=== PATIENT | female | born 2000 | race Hispanic/Latino ===

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

== ENCOUNTER 2022-02-08 17:52 | Emergency (ER) | payer BC, SELFPAY ==
[2022-02-08 17:53] VITALS: BP 177/100; PULSE 116; RESP 18; TEMP 36.4; O2SAT 98; BMI 57.6
[2022-02-08 18:56] VITALS: BP 153/107; PULSE 108; RESP 22; O2SAT 98
--- NOTE | 2022-02-08 19:08 | EDS_ITS ---
HPI History of Present Illness Chief Complaint: Shortness of Breath Informant: patient Narrative Narrative: Patient initially presents with sore throat and pain with swallowing. She also feels like it is little hard to breathe through her throat. This has been going on since Monday. She had a procedure that had a removal possible polyp from the third portion of the duodenum up in [place]. Evidently there was a lot of irritation to the throat after the procedure. It was very red and scratched. On her way back to college here on Monday she had a little bleeding from the throat. She stopped in [facility]. She had work-up with blood work, rapid strep which was negative, and a CT scan of the neck with and without contrast that showed no abnormalities. She was given a single dose of steroids. She states she felt better on Monday and a little bit Monday but it starting to come back. She has not had fevers but she has soreness of her throat. She is not really coughing. She is not really having dyspnea of her lungs but is just sore breathing through her throat. It is also hard to swallow because it hurts. Patient denies medical conditions. She is on no medications. Although she has no specific medical diseases she says she has a lot of medical problems. She sees lots of specialist for lots of symptoms. They have never been able to diagnose her with anything. 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 They do not know what the disorder is. But it is the only one in the world. They also think she might have an autoimmune disorder but her blood work varies [id number]. She used to be on vitamins and folate but she has taken off of those. She generally has been healthy. PFSH PFSH Medical History Anxiety Asthma Kidney stones Non-smoker Home Medications ketorolac 10 mg tablet 10 mg PO TID pain 4 days #12 tabs 06/01/21 [Rx Last Taken Unknown] methylphenidate HCl 20 mg tablet (Ritalin) 40 mg PO DAILY 06/01/21 [History Last Taken Unknown] ondansetron 4 mg disintegrating tablet 4 mg PO Q6H PRN nausea and vomiting #10 tabs 06/01/21 [Rx Last Taken Unknown] amoxicillin 400 mg-potassium clavulanate 57 mg/5 mL oral suspension 10 ml PO BID 10 days #200 mL 08/23/22 [Rx Last Taken Unknown] Allergy/AdvReac Type Severity Reaction Status Date / Time ibuprofen [From Motrin] AdvReac NEEDS Verified 06/01/21 15:37 FOLLOW-UP Social History Smoking Status: Never smoker ROS ROS ED Constitutional Constitutional ED: Denies chills, fever(s) or subjective Eyes Eyes: Denies change in vision ENT ENT ED: Reports sore throat and other Details: See history of present illness peer Cardiovascular Cardiovascular: Denies chest pain or palpitations Respiratory/Chest Respiratory/Chest: Denies cough Gastrointestinal Gastrointestinal: Denies abdominal pain, nausea or vomiting Musculoskeletal Musculoskeletal: Reports neck pain Integumentary Denies Abrasions or rash Neurologic Neurologic: Denies headache(s) Psychiatric Psychiatric: Denies anxiety Endocrine Endocrinology: Denies polydipsia or polyuria Hematologic/Lymphatic Hematologic/Lymphatic: Denies easy bleeding or easy bruising Allergic/Immunologic Allergic/Immunologic ED: Denies urticaria EXAM Physical Exam Const Vital Signs: 02/08/22 17:53 02/08/22 18:56 02/08/22 18:56 Temperature 97.6 F L Temperature Source Temporal Pulse Rate 116 H 108 H Respiratory Rate 18 22 H Respiratory Effort Normal Respiratory Depth Normal Respiratory Pattern Normal Blood Pressure 177/100 H 153/107 H Blood Pressure Mean 125 122 Pulse Ox 98 98 Oxygen Delivery Method Room Air Room Air Room Air 02/08/22 20:04 Temperature Temperature Source Pulse Rate 107 H Respiratory Rate 21 H Respiratory Effort Respiratory Depth Respiratory Pattern Blood Pressure 144/101 H Blood Pressure Mean 115 Pulse Ox 97 Oxygen Delivery Method Room Air Positive well nourished, well developed and obese Constitutional Narrative: Patient carries on normal conversation. She looks comfortable. She does not appear to be having acute trouble breathing. Her voice does sound a little scratchy. General Appearance ED: well developed and NAD; Negative for cyanotic or diaphoretic Nutritional Appearance: obese HEENT HEENT Narrative: She does have some malodorous breath. She has tonsils that are a bit red. They are mildly enlarged. Right side could be slightly larger than the left. There is also exudate on the tonsils. No sign of pointing or abscess. Tongue is mobile. Posterior pharynx does show wide open areas. Eyes EOMs intact bilaterally Neck Neck Narrative: Mild lymphadenopathy. No stridor. Resp normal respiratory effort and clear to auscultation bilaterally Resp Narrative: Lungs are completely clear. Breathing is easy and unlabored. No pain with a deep breath. Auscultation: Negative for rales, rhonchi or wheezes Cardio regular rhythm Rate: tachycardic GI normal to inspection, nondistended, normoactive bowel sounds and non-tender Back/Spine no CVA tenderness Extremity normal to inspection Neuro Sensorium / Orientation: alert Skin no rashes or lesions noted MDM MDM MDM Narrative Medical decision making narrative: Patient's rapid strep is negative. However, she has erythema, exudate soreness recent procedure with an abrasion and prior bleeding and malodorous breath. She already had a CT scan on Monday. We discussed the options but do not feel this needs to be repeated. We will treat her with a dose of steroids. We will use Tylenol. I will also add antibiotics. She and her mom are happy with this plan. We discussed reasons to return and expected course. Lab Data Attestation: I reviewed the patient's lab results. Discharge Plan Triage Chief Complaint: Shortness of Breath ED Provider: Trae Garrett Dx/Rx/DC Orders Clinical Impression: Acute pharyngitis Instructions: ED Pharyngitis, Report Pending Prescriptions: New amoxicillin-pot clavulanate 400-57 mg/5 mL suspension for reconstitution 10 ml PO BID 10 Days Qty: 200 0RF No Action methylphenidate HCl [Ritalin] 20 mg Tablet 40 mg PO DAILY ketorolac 10 mg tablet 10 mg PO TID 4 Days Qty: 12 0RF ondansetron 4 mg tablet,disintegrating 4 mg PO Q6H PRN (Reason: nausea and vomiting) Qty: 10 0RF Primary Care Provider: Care Physician,No Primary Referrals: Irene Roth DO [Med Staff - Active Staff] - 3-5 Days if not improving Care Physician,No Primary [Primary Care Provider] - Disposition Disposition: Home, Self Care
[2022-02-08 20:04] VITALS: BP 144/101; PULSE 107; RESP 21; O2SAT 97
[2022-02-08 21:27] VITALS: BP 139/123; PULSE 94; RESP 19; O2SAT 97
[2022-02-08] MEDS: Amox/Clav 400mg/5ml Susp 800 MG PO (21:29)
[2022-02-08] MEDS: dexAMETHasone 10 MG/ML Vial PO.IVFORM (21:29)
[2022-02-08] MEDS: Acetaminophen 650 MG/20 ML UDC PO (21:29)
== END 2022-02-08 21:36 | disposition home or self-care (01) ==
PROVIDERS: Emergency Provider Emergency Medicine; Visit Provider Emergency Medicine
DX: J02.9 Acute pharyngitis, unspecified (principal); R06.02 Shortness of breath
CPT/HCPCS: 87880; 99283

== ENCOUNTER 2024-02-07 19:00 | Emergency (ER) | payer BC, SELFPAY ==
[2024-02-07 19:01] VITALS: BP 160/102; PULSE 100; RESP 17; TEMP 36.4; O2SAT 99
[2024-02-07 19:25] LABS: Mucous, Urine 0 SEEN /hpf (<or=2+)
[2024-02-07 19:33] LABS: Color, Urine Red (Yellow); Glucose, Dipstick Normal (Normal); Ketone-Dipstick Negative (Negative); Leukocyte Esterase-Dipstick 500 /ul (Negative); Nitrite-Dipstick Negative (Negative); Occult Blood-Urine 250 /ul (Negative); Protein-Dipstick 100 mg/dl (Negative); Specific Gravity, Urine 1.015 (1.002-1.030); Urine Bilirubin Dipstick Negative (Negative); Urine Clarity Cloudy (Clear); Urine Urobilinogen 1 mg/dl (Normal)
[2024-02-07 20:08] LABS: Bacteria 2+ /hpf (None Seen); White Blood Cells 5-10 SEEN /hpf (0-5)
[2024-02-07 20:09] LABS: Renal Epithelial Cells 0-5 SEEN /hpf (0-5); Transitional Epithelial - Ur 0-5 SEEN /hpf (0-5)
[2024-02-07 20:11] LABS: Red Blood Cells-Urine > 100 SEEN /hpf (0-5); Squamous Epithelial Cells - UA 5-10 SEEN /hpf (5-10)
--- NOTE | 2024-02-07 20:14 | ED.VIS.FEGU ---
HPI HPI - Female History of Present Illness Chief Complaint: Vag Bld, Preg Narrative Narrative: Patient is a 23-year-old female with history of pernicious anemia, states that she is approximate 7 weeks presenting with vaginal bleeding. The patient was having intercourse today when she suddenly had bleeding. She states there is about a handful amount of bright red blood. Notes her bleeding is slowing down this point. Has been having urinary frequency but denies any associated dysuria or hematuria. Was otherwise feeling well. Denies any signs of abdominal pain. 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 Patient denies any other complaints or concerns at this time. [facility] Medical History Anxiety Non-smoker Asthma Kidney stones Home Medications ?Medication ?Instructions ?Recorded ?Last Taken ?Type ketorolac 10 mg tablet 10 mg PO TID pain 4 days #12 tabs 06/01/21 Unknown Rx methylphenidate HCl 20 mg tablet 40 mg PO DAILY 06/01/21 Unknown History (Ritalin) ondansetron 4 mg disintegrating 4 mg PO Q6H PRN nausea and 06/01/21 Unknown Rx tablet vomiting #10 tabs amoxicillin 400 mg-potassium 10 ml PO BID 10 days #200 mL 02/08/22 Unknown Rx clavulanate 57 mg/5 mL oral suspension Allergy/AdvReac Type Severity Reaction Status Date / Time ibuprofen (From Motrin) AdvReac NEEDS Verified 02/07/24 19:01 FOLLOW-UP Social History Smoking Status: Never smoker ROS ROS ED Constitutional Constitutional ED: Denies chills or fever(s) Respiratory/Chest Respiratory/Chest: Denies cough or dyspnea Gastrointestinal Gastrointestinal: Denies abdominal pain, nausea or vomiting Genitourinary Genitourinary ED: Reports urinary frequency and other Details: vaginal bleeding ; Denies dysuria or hematuria Hematologic/Lymphatic Hematologic/Lymphatic: Denies easy bleeding or easy bruising EXAM Physical Exam Const Vital Signs: 02/07/24 19:01 02/07/24 21:00 Temperature 97.6 F L Temperature Source Temporal Pulse Rate 100 82 Respiratory Rate 17 16 Blood Pressure 160/102 H 135/88 H Blood Pressure Mean 121 103 Pulse Ox 99 98 Oxygen Delivery Method Room Air Room Air Positive well nourished and well developed General Appearance ED: well developed and NAD Neck supple Resp normal respiratory effort and clear to auscultation bilaterally Cardio regular rate and regular rhythm GI normal to inspection, nondistended, normoactive bowel sounds, soft to palpation and non-tender Narrative: Chaperoned pelvic exam?difficult to fully evaluate the cervix, secondary to patient's body habitus. No pooling of blood in the vaginal canal. There is some dark red blood noted on vaginal exam. No clots appreciated. No cervical motion tenderness on bimanual exam. No adnexal tenderness present. Normal external genitalia. Extremity normal to inspection Neuro oriented x3 Sensorium / Orientation: alert Motor Exam: Negative for general weakness Psych mental status grossly normal Skin no rashes or lesions noted and no wounds MDM MDM MDM Narrative Medical decision making narrative: Patient is evaluated for vaginal bleeding in early . She was nontoxic in no acute distress. She is not complain of any associated pain. Was having intercourse during the bleeding. Again denies any associated pelvic pain or pain with intercourse. Has not had an ultrasound to confirm uterine gestation, states that she had an ultrasound in [place] but it is too soon for them to say for sure about anything. Does not have an INSPECTING MACHINE ADJUSTER in this area. Differential includes was not limited to ectopic , vaginal laceration, threatened miscarriage, urinary tract infection Patient does have a leukocytosis of 17.8 however she has no infectious symptoms and overall is well-appearing. Her hemoglobin is normal at 13.1. hCG quant is 64,984. Urinalysis she has twos+ bacteria and greater than 100,000 RBCs. Suspect this is more contamination from the bleeding. She is a positive and does not require RhoGAM. Attempted to perform bedside ultrasound I did see a gestational sac however did not see a definitive intrauterine gestation or pole so we will obtain formal ultrasound given her bleeding. Formal pelvic ultrasound shows monk gestation consistent with 7 weeks and 4 days and with a heart rate of 148. Patient formed of these findings. Counseled that this is considered a threatened miscarriage. Given local outpatient INSPECTING MACHINE ADJUSTER follow-up. Given return precautions. Discussed pelvic rest. She verbalized [place] understands plan. Will send urine off for culture but defer treatment at this time. Patient agreeable to plan of care Lab Data Labs: Laboratory Results - last 24 hr 02/07/24 02/07/24 19:19 19:31 WBC 17.8 H RBC 4.76 Hgb 13.1 Hct 40.1 MCV 84.2 MCH 27.5 MCHC 32.7 RDW Std Deviation 45.6 H RDW Coeff of Viki 14.8 H Plt Count 391 MPV 10.1 Immature Gran % (Auto) 0.600 Neut % (Auto) 73.8 H Lymph % (Auto) 17.9 L [place] % (Auto) 6.7 Eos % (Auto) 0.6 Baso % (Auto) 0.4 Absolute Neuts (auto) 13.2 H Absolute Lymphs (auto) 3.19 Nucleated RBC % 0 HCG, Quant 06500 H Urine Color Red Urine Clarity Cloudy Urine pH 6.0 Ur Specific [place] 1.015 Urine Protein 100 H Urine Glucose (UA) Normal Urine Ketones Negative Urine Occult Blood 250 H Urine Nitrite Negative Urine Bilirubin Negative Urine Urobilinogen 1 H Ur Leukocyte Esterase 500 H Urine RBC > 100 SEEN Urine WBC 5-10 SEEN Ur Squamous Epith Cells 5-10 SEEN Ur Transition Epith Cell 0-5 SEEN Ur Renal Epithelial Cell 0-5 SEEN Urine Bacteria 2+ Urine Mucus 0 SEEN Blood Type A POSITIVE Radiography Diagnostic Testing: Clinical Impression(s) from Imaging Studies Obstetrics Ultrasound 02/07/24 21:09 IMPRESSION: Single live intrauterine measuring at 7 weeks +4 days by crown-rump length. This gives estimated date of delivery by current ultrasound of 09/21/2024. Right 1.9 cm likely corpus luteum. Electronically Signed: Hamzah Miranda MD at 22:37 EDT , Discharge Plan Triage Chief Complaint: Vag Bld, Preg ED Provider: Padmaja Davies Dx/Rx/DC Orders Clinical Impression: Threatened miscarriage in early Instructions: Miscarriage Threatened Prescriptions: No Action methylphenidate HCl [Ritalin] 20 mg Tablet 40 mg PO DAILY ketorolac 10 mg tablet 10 mg PO TID 4 Days Qty: 12 0RF ondansetron 4 mg tablet,disintegrating 4 mg PO Q6H PRN (Reason: nausea and vomiting) Qty: 10 0RF amoxicillin-pot clavulanate 400-57 mg/5 mL suspension for reconstitution 10 ml PO BID 10 Days Qty: 200 0RF Primary Care Provider: Tiffani Castillo,Out of Referrals: Eileen Jay, DO [Med Staff - Active Staff] - As Needed [facility] Doctor,Out of [Primary Care Provider] - Activity Restrictions/Additional Instructions: At this time it appears you have a healthy consistent with 7 weeks and 4 days with a heart rate of 148. It is possible that you could go on to have a normal and also possible that you could ultimately have a miscarriage. Please follow-up with your INSPECTING MACHINE ADJUSTER. Return if you have severe cramping or heavy bleeding where you are bleeding through a pad an hour for more than 2 hours in a row. Print Language: [place] Disposition Disposition: Home, Self Care
[2024-02-07 20:21] LABS: Absolute Lymphocyte Count 3.19 X10^3/uL (0.83-4.51); Absolute Neutrophil Count 13.2 X10^3/uL (2.0-7.7); Basophil# 0.08 X10^3/uL; Basophil% 0.4 % (0-1); Eosinophils% 0.6 % (0-5); Hematocrit 40.1 % (37-47); Hemoglobin 13.1 g/dL (12.0-15.0); Lymphocyte # 3.19 X10^3/ul (0.83-4.51); Lymphocyte % 17.9 % (19-41); Mean Corp Hgb Conc 32.7 g/dL (32-36); Mean Corpuscular Hgb 27.5 pg (27.0-32.0); Mean Corpuscular Volume 84.2 fL (81-99); Mean Platelet Vol. 10.1 fl (6.2-12.0); Monocyte# 1.19 X10^3/uL; Monocyte% 6.7 % (0-10); NRBC Flagged by Analyzer 0 % (0-5); Neutrophil # 13.17 X10^3/uL (2.7-7.7); Neutrophil % 73.8 % (47-70); Platelet Count 391 K/mm3 (150-450); RBC Distribution Width CV 14.8 % (11.6-14.6); RBC Distribution Width SD 45.6 fl (35.1-43.9); Red Blood Count 4.76 M/mm3 (4.2-5.4); White Blood Count 17.8 K/mm3 (4.4-11.0)
[2024-02-07 20:22] LABS: hCG Titer Quant., Serum 64984 mIU/mL (1-3)
[2024-02-07 21:00] VITALS: BP 135/88; PULSE 82; RESP 16; O2SAT 98
--- NOTE | 2024-02-07 21:09 | US_ITS ---
INDICATION: vaginal bleeding, preg COMPARISON: Abdominal CT 06/01/2021. FINDINGS: 68 fernando scale ultrasound images obtained both transabdominally and transvaginally demonstrate single live intrauterine measuring at 7 weeks +4 days by crown-rump length. This gives estimated date of delivery by current ultrasound of 09/21/2024. heart rate 148 bpm. Yolk sac identified. Adequate amniotic fluid for gestational age. Placenta cannot be definitively identified at this gestational age. Few nabothian cysts. Uterine myometrium is otherwise unremarkable. Uterine cervix is long and closed. Left ovary is not visualized. Right ovary contains 1.9 cm hypoechoic lesion, likely corpus luteum. No significant free fluid. US/Transvaginal w/Preg US IMPRESSION: Single live intrauterine measuring at 7 weeks +4 days by crown-rump length. This gives estimated date of delivery by current ultrasound of 09/21/2024. Right 1.9 cm likely corpus luteum. Electronically Signed: Hamzah Miranda MD at 22:37 EDT ,
[2024-02-07 22:55] VITALS: BP 124/72; PULSE 82; RESP 16; TEMP 36.4; O2SAT 98
== END 2024-02-07 23:07 | disposition home or self-care (01) ==
PROVIDERS: Emergency Provider Emergency Medicine; Visit Provider Emergency Medicine
DX: O20.0 Threatened abortion (principal); Z3A.01 Less than 8 weeks gestation of pregnancy
CPT/HCPCS: 76817; 81001; 84702; 85025; 86900; 86901; 87086; 87088; 99282

== ENCOUNTER → 2024-02-23 | Outpatient (CLI) | payer BC, SELFPAY ==
[2024-02-23 18:50] LABS: Protein, Urine (Random) 15.9 mg/dL (<11.9); Protein:Creat Ratio 91 mg/g CRE (0-200)
[2024-02-27 00:07] LABS: Chlamydia By Nucleic Acid AMP Negative (Negative); Gonococcus By Nucleic Acid AMP Negative (Negative)
== END | disposition home or self-care (01) ==
LOC: LABSPEC 16:46
PROVIDERS: Referring Provider Obstetrics & Gynecology; Visit Provider Obstetrics & Gynecology
DX: O99.210 Obesity complicating pregnancy, unspecified trimester (principal); O99.019 Anemia complicating pregnancy, unspecified trimester; D51.0 Vitamin B12 deficiency anemia due to intrinsic factor deficiency; Z3A.00 Weeks of gestation of pregnancy not specified; O09.92 Supervision of high risk pregnancy, unspecified, second trimester
CPT/HCPCS: 82570; 84156; 87491; 87591

== ENCOUNTER → 2024-03-07 | Outpatient (CLI) | payer BC, SELFPAY ==
[2024-03-07 12:57] LABS: Absolute Lymphocyte Count 1.78 X10^3/uL (0.83-4.51); Absolute Neutrophil Count 7.5 X10^3/uL (2.0-7.7); Basophil# 0.04 X10^3/uL; Basophil% 0.4 % (0-1); Eosinophil# 0.08 X10^3/uL; Eosinophils% 0.8 % (0-5); Hematocrit 40.6 % (37-47); Hemoglobin 13.1 g/dL (12.0-15.0); Lymphocyte # 1.78 X10^3/ul (0.83-4.51); Lymphocyte % 17.5 % (19-41); Mean Corp Hgb Conc 32.3 g/dL (32-36); Mean Corpuscular Hgb 27.6 pg (27.0-32.0); Mean Corpuscular Volume 85.5 fL (81-99); Mean Platelet Vol. 9.6 fl (6.2-12.0); Monocyte# 0.79 X10^3/uL; Monocyte% 7.8 % (0-10); NRBC Flagged by Analyzer 0 % (0-5); Neutrophil # 7.45 X10^3/uL (2.7-7.7); Platelet Count 313 K/mm3 (150-450); RBC Distribution Width CV 14.4 % (11.6-14.6); RBC Distribution Width SD 44.8 fl (35.1-43.9); Red Blood Count 4.75 M/mm3 (4.2-5.4); White Blood Count 10.2 K/mm3 (4.4-11.0)
[2024-03-07 13:37] LABS: T4 Free Direct 0.87 ng/dL (0.76-1.46)
[2024-03-07 13:38] LABS: Hemoglobin A1c 5.6 % (3.8-5.6)
[2024-03-07 14:54] LABS: HIV - WCH Non-Reactive (Nonreactive); Hepatitis B Surface Antigen Non-Reactive (Nonreactive); Hepatitis C Antibody Non-Reactive (Nonreactive); Rubella IgG Reactive (Nonreactive); Syphilis Antibodies Non-reactive; Vitamin B12 664 pg/mL (211-911)
[2024-03-13 09:38] LABS: HPV Reflexed? NOT INDICATED
== END | disposition home or self-care (01) ==
PROVIDERS: Referring Provider Obstetrics & Gynecology; Visit Provider Obstetrics & Gynecology
DX: Z34.01 Encounter for supervision of normal first pregnancy, first trimester (principal); Z31.430 Encounter of female for testing for genetic disease carrier status for procreative management
CPT/HCPCS: 36415; 82607; 83036; 84439; 84443; 85025; 86703; 86762; 86780; 86803; 86850; 86900; 86901; 87086; 87088; 87340; 88175; G0145